=== PATIENT | female | born 1960 | race Caucasian/White ===

== ENCOUNTER 2016-05-15 16:29 | Emergency (ER) | payer OTHER ==
[~2016-05-15] VITALS: Ht 160 cm; Wt 51.8 kg
[~2016-05-15 16:29] MED LIST: 5-HY100C2 PO; CHOL200016 PO; DIAZ5TAB PO; MV-M1TAB28 PO; OXYC5CAP4 PO; TRAZ-118 PO; VITA-219 PO
[2016-05-15 16:32] VITALS: BP 117/56; PULSE 89; RESP 22; O2SAT 98
--- NOTE | 2016-05-15 18:02 | ED.REPORT ---
HPI-General Illness Date of Service May 15, 2016 ED Provider: Dr. Marino Foster 56 year old female with a history of multiple cervical surgeries, emphysema/ COPD and a current smoker who presents to the ED with severe back pain between the shoulder blades. Pt reports a recent fall in the snow, but states that the pain was present prior to the fall. Pain is exacerbated with deep breath, movements and positions. Pt has chronic back pain from a previous neck injury, but states this pain is worse. She also reports moderate pain to the L foot and L 4th finger from the fall. She also reports mild chronic SOB. Nursing Notes Stated Complaint: BACK PAIN/BETWEEN SHOULDER PAIN Chief Complaint: Back Pain or Injury Nursing Notes Reviewed: Yes Allergies: Coded Allergies: acetaminophen (Verified Allergy, Severe, 02/12/16) codeine (Verified Allergy, Severe, Anaphylaxis, 02/02/16) hydrocodone (Verified Allergy, Severe, TRUE ALLERGY, 02/02/16) Nitrofurantoin Macrocrystal (Verified Allergy, Unknown, 02/02/16) TAPE (Verified Allergy, Unknown, oliva skin, 02/02/16) nitrofurantoin (Verified Allergy, Unknown, 02/02/16) sertraline (Verified Allergy, Unknown, "made me crazy", 05/15/16) Scheduled Cholecalciferol (Vitamin D3) (Vitamin D) 2,000 Unit Tablet 2,000 UNIT PO DAILY Diazepam (Valium) 5 Mg Tablet 5 MG PO TID Trazodone (Trazodone) 100 Mg Tablet 100 MG PO HS Scheduled PRN oxyCODONE (oxyCODONE) 5 Mg Capsule 5 MG PO Q4H PRN PRN For Pain Miscellaneous Medications 5-Hydroxytryptophan (5-Htp) 100 Mg Capsule 100 MG PO Mv-Mn/Vitc/Asbna/Glu/Francia/Hc124 (Airborne Gummies) 1 Each Tab.chew 1 EACH PO Vitamin B Complex (B Complex) 1 Each Tablet 1 EACH PO General Time Seen by MD: 18:02 Chief Complaint Back pain Hx Obtained From: Patient Arrived By: Walk-in Sudden in Onset?: No Symptom Duration: Since onset Location: : Back Quality: Painful Severity: Current: Severe Associated with: Reports: Shortness of breath Pertinent Negative: Relieved by nothing Similar Sx Previous: Yes Past Medical History Past Medical History L&I neck injury asthma COPD emphysema migraine UTIs Back injury Anxiety Depression Past Surgical History colonoscopy 01/22 neck surgery x3 benign periumbilical tumor benign L breast lump TA Cervical CA at age 19 Reports: Appendectomy, Cholecystectomy, Hysterectomy Family History colon cancer Smoking History Current Every Day Smoker Social History Alcohol Use: "Social" Drug Use: Denies drug use, THC Occupation lives with roommate 02/02/2016 Ambulatory Status Independent Review of Systems Full Review of Systems Constitutional: Denies: Fever Respiratory: Reports: Shortness of breath, Denies: Non-productive cough Cardiovascular: Denies: Chest pain GI: Denies: Vomiting Musculoskeletal: Reports: Back pain Neurologic: Denies: Change LOC, Focal weakness Complete sys rev & neg: except as marked. Physical Exam Vital Signs Vital Signs Date Time Temp Pulse Resp B/P Pulse Ox O2 Delivery O2 Flow Rate FiO2 05/15/16 23:32 62 14 101/65 92 Room Air 05/15/16 22:30 59 14 99 Room Air 05/15/16 21:00 65 14 92 Room Air 05/15/16 20:30 63 15 99 Room Air 05/15/16 16:32 37.0 89 22 117/56 98 Nasal Cannula 3 Initial VS: Reviewed General/Constitutional: Well-developed, Well-nourished Head / Eyes: Atraumatic, Normocephalic, PERRL ENT: Mucous membranes moist, Conjunctiva normal, No scleral icterus Respiratory: Breath sounds normal, Clear to auscultation, No respiratory distress Cardiovascular: Regular rate & rhythm, Heart sounds normal, Intact distal pulses Abdomen / GI: Soft, Non-tender Skin: Warm, Dry Neurologic: Alert, Oriented, Nonfocal Psychiatric: Mood/affect normal, Behavior normal, Normal thought content Neck: Atraumatic, No midline vertebral tend Back: No midline vertebral tend (Pain reported to mid T-spine with no midline tenderness) Post op changes to back Upper Extremities Upper Extremity / MS: Neurologic intact, Vascular intact Ecchymosis to L 4th digit. Ankle / Foot: Neurologic intact, Vascular intact TTP of Lateral aspect of foot, base of 5th metatarsal. Interpretation & Diagnostics Lab Results Interpretation Result Diagram: 05/15/16 1840 05/15/16 1840 Test 05/15/16 18:40 05/15/16 22:10 White Blood Count 8.1th/mm3 (3.8-10.1) Red Blood Count 4.05mil/mm3 (3.90-5.20) Hemoglobin 12.6g/dL (12.0-15.6) Hematocrit 38.3% (35.0-46.0) Mean Corpuscular Volume 94.6fL (81-100) Mean Corpuscular Hemoglobin 31.1pg (27.0-35.0) Mean Corpuscular Hemoglobin Concent 32.9% (32.0-37.0) Red Cell Distribution Width 12.9% (12.3-15.4) Platelet Count 251bil/L (150-400) Neutrophils (%) (Auto) 46.0% (40-74) Lymphocytes (%) (Auto) 44.0% (14-46) Monocytes (%) (Auto) 7.6% (4-12) Eosinophils (%) (Auto) 1.9% (0-5) Basophils (%) (Auto) 0.4% (0-3) D-Dimer < 0.5mg/L (<0.50) Sodium Level 138mEq/L (134-144) Potassium Level 3.7mEq/L (3.5-5.2) Chloride Level 101mEq/L (97-108) Carbon Dioxide Level 29mmol/L (18-29) Blood Urea Nitrogen 12mg/dL (6-24) Creatinine 0.70mg/dL (0.57-1.00) Estimat Glomerular Filtration Rate 123mL/min (>59) Glucose Level 102mg/dL (60-99) Calcium Level 9.6mg/dL (8.5-10.1) Total Bilirubin 0.2mg/dL (0.0-1.2) Aspartate Amino Transf (AST/SGOT) 17U/L (0-50) Alanine Aminotransferase (ALT/SGPT) 10U/L (0-32) Alkaline Phosphatase 62U/L (25-150) Total Protein 6.3g/dL (6.4-8.4) Albumin 4.1g/dL (3.4-5.0) Hold Myers Top Tube Received (Received) Troponin T 0.010ug/L (0.0-0.011) General Lab Results Interp 1: Labs reviewed Pulse Oximetry Interpretation Pulse Oximetry: Pulse Ox normal (98), On nasal cannula (3L) ECG Interpretation ECG Interpretation: Low voltage Time: 18:29 Interpreted by: ED physician Normal ECG Interpretation: Normal rate (65), Normal sinus rhythm, No acute ischemic changes Rhythm / Conduction: Poor R wave progression X-Ray Chest Interpretation Chest Xray Interpretation: No acute cardiopulmonary disease. View: AP & lat Interpretation / Wet Read by: Interpret - Radiologist X-Ray Interpretation Xray Interpretation: No visualized acute fracture or dislocation. Study Performed: T-spine Interpretation / Wet Read by: Interpret - Radiologist CT Chest Interpretation No evidence of PE or dissection. Emphysema. Intrahepatic and extrahepatic biliary dilation. This may be chronic, rorrelate with lab values. Study type: CT pulm angiogram Interpretation / Wet Read by: Interpret - Radiologist Re-Eval/Medical Decision Med Decision/Clinical Course Severe nontraumatic intrascapular back pain. No history of trauma. Myocardial infarction ruled out with EKG and serial troponins. Dissection and pulmonary emboli ruled out. Acute fracture ruled out. Pathologic fracture ruled out. Infection ruled out. Pain adequately treated. Close outpatient follow-up recommended. Routine sedative/opiate warnings given. Time of Eval: 21:57 Re-Evaluation/Progress Note: Pt updated of imaging. Awaiting repeat trop. feeling better. Time of Eval: 10:42 Re-Evaluation/Progress Note: Updated of plan for CT scan. Time of Eval: 22:58 Re-Evaluation/Progress Note: Updated pt of labs, ECG and imaging results. Pt improved. Discussed plan for discharge and follow up. All questions addressed. Counseled Regarding: Diagnosis, Lab results, Need for follow-up, When/why to return to ED Discharge & Departure Primary Impression: Thoracic back pain Chronicity: chronic Back pain laterality: midline Qualified Code: M54.6 - Pain in thoracic spine Disposition: Home Discharge Condition All VS Reviewed: Yes Condition: Improved Additional Instructions: Your x-ray, chest CT and labs are reassuring. There is no sign of pulmonary embolism, aortic dissection or fracture. Your symptoms are most likely musculoskeletal. Make sure that you are resting your back. For pain you can use your usual prescription pain medications as prescribed starting tomorrow. Don' t drink, drive or use your pain medications tonight. Call your PCP on Tuesday to schedule a follow up with your doctor next week. Return to the ER for any new or concerning symptoms. Referrals: Jamir Anna MD (PCP) Scribe Attestation Portions of this note were transcribed by Gaby Hill. I, (Dr. Foster) personally performed the history, physical exam and medical decision-making; I reviewed and confirmed the accuracy of the information in the transcribed note. Signed by: Gaby Hill. Shun, 05/15/16, 1068 copies to: Jamir Anna MD, Todd P DO May 15, 2016 18:02 Gaby Hill May 15, 2016 18:49
[2016-05-15] MEDS ORDERED: Ondansetron 2 mg/mL 2 mL Inj IVPUSH PRN (18:20)
[2016-05-15] MEDS: HYDROmorphone 0.5 mg/0.5 mL iSecure Syringe IVPUSH PRN ×2 (18:53→20:45)
[2016-05-15 19:14] LABS: BASOPHILS % (AUTO) 0.4 % (0-3); EOSINOPHILS % (AUTO) 1.9 % (0-5); MONOCYTES % (AUTO) 7.6 % (4-12); Mean Corpuscular Hemoglobin 31.1 pg (27.0-35.0); Mean Corpuscular Volume 94.6 fL (81-100); Platelet Count 251 bil/L (150-400)
[2016-05-15 19:42] LABS: TROPONIN T < 0.010 ug/L (0.0-0.011)
[2016-05-15 20:30] VITALS: PULSE 63; RESP 15; O2SAT 99
[2016-05-15 21:00] VITALS: PULSE 65; RESP 14; O2SAT 92
[2016-05-15 22:30] VITALS: PULSE 59; RESP 14; O2SAT 99
[2016-05-15] MEDS ORDERED: HYDROmorphone 1 mg/mL Inj IVPUSH ONE (23:00)
[2016-05-15] MEDS ORDERED: Dexamethasone Inj 10 MG in 0.9% Sodium Chloride-Pha MIX 50 ML IV ONE (23:30)
[2016-05-15 23:32] VITALS: BP 101/65; PULSE 62; RESP 14; O2SAT 92
--- NOTE | 2016-05-16 15:12 | DRSVH ---
PROCEDURE: X-RAY LEFT FOOT COMPLETE, MINIMUM THREE VIEWS ([id number]) INDICATIONS: fall, pain TECHNIQUE: 3 views of the foot were acquired. COMPARISON: None. FINDINGS: Bones: No fractures or dislocations. No suspicious bony lesions. Soft tissues: No tibiotalar joint effusion. Achilles tendon appears normal. Mild soft tissue edema is present in the plantar surface. IMPRESSION: Mild plantar surface soft tissue edema. No visualized acute fracture or dislocation. How ever, if clinical concern and/or pain persist, short interval imaging followup in 7-10 days is recomm ended, as occult injury cannot be definitively excluded. Dictated by: Samantha Marie M.D. on 05/15/2016 at 18:37 Approved by: Samantha Marie M.D. on 05/15/2016 at 18:39
--- NOTE | 2016-05-16 15:12 | DRSVH ---
PROCEDURE: X-RAY LEFT HAND, MINIMUM THREE VIEWS ([id number]) INDICATIONS: fall, pain TECHNIQUE: 3 views of the hand(s) acquired. COMPARISON: None. FINDINGS: Bones: No fractures or dislocations. Carpal bones are normally aligned. No suspicious bony lesions . Soft tissues: No suspicious soft tissue calcifications. IMPRESSION: No visualized acute fracture or dislocation. However, if clinical concern and/or pain pe rsist, short interval imaging followup in 7-10 days is recommended, as occult injury cannot be defini tively excluded. Dictated by: Samantha Marie M.D. on 05/15/2016 at 18:37 Approved by: Samantha Marie M.D. on 05/15/2016 at 18:37
--- NOTE | 2016-05-16 15:13 | DRSVH ---
PROCEDURE: X-RAY CHEST, TWO VIEWS ([id number]) INDICATIONS: intrascapular back pain TECHNIQUE: 2 views of the chest were acquired. COMPARISON: [facility], CR, XR CHEST 2VW, 02/27/2016, 8:16. FINDINGS: Surgical changes and devices: Cervical fixation rods are noted. Lungs and pleura: No pleural effusions or pneumothorax. Lungs are clear. Lungs are hyperexpanded s uggestive of COPD. Mediastinum: Mediastinal contours are normal. Heart size is normal. Bones and chest wall: No suspicious bony abnormalities. Soft tissues appear unremarkable. IMPRESSION: No acute pulmonary process. Dictated by: Samantha Marie M.D. on 05/15/2016 at 20:32 Approved by: Samantha Marie M.D. on 05/15/2016 at 20:32
--- NOTE | 2016-05-16 15:13 | DRSVH ---
PROCEDURE: X-RAY THORACIC SPINE, 2 VIEWS INDICATIONS: INTRASCAPULAR BACK PAIN TECHNIQUE: 2 views of the thoracic spine were acquired. COMPARISON: None. FINDINGS: Bones: No fractures or dislocations. No suspicious bony lesions. 12 pairs of ribs are noted, and a ppear intact where visualized. Soft tissues: No paravertebral stripe thickening. IMPRESSION: No visualized acute fracture or dislocation. However, if clinical concern and/or pain pe rsist, short interval imaging followup in 7-10 days is recommended, as occult injury cannot be defini tively excluded. Dictated by: Samantha Marie M.D. on 05/15/2016 at 20:32 Approved by: Samantha Marie M.D. on 05/15/2016 at 20:33
--- NOTE | 2016-05-16 15:13 | DRSVH ---
PROCEDURE: CT ANGIO CHEST PULMONARY EMBOLISM ([id number]) INDICATIONS: intrascapular pain, dyspnea TECHNIQUE: After the administration of intravenous contrast, 2 mm thick sections acquired from the pulmonary api [place] to the posterior costophrenic angles. 3-dimensional maximum intensity projection (MIP) coronal a nd sagittal reformats were then acquired through the thorax. For radiation dose reduction, the follo wing was used: automated exposure control, adjustment of mA and/or kV according to patient size. COMPARISON: [facility], CT, CHEST/ABD/PELVIS W/CON (PNL), 04/24/2014, 22:10. FINDINGS: Image quality: Excellent. Pulmonary arteries: Pulmonary arteries are normal in size, and demonstrate no intraluminal filling d efects to suggest central pulmonary embolism. Lungs and pleura: Small lung nodules are present bilaterally. There is interval minimal nodule in th e right upper lobe medially (series 5 image 19). There are a couple of subcentimeter nodules in the right lower lobe (series 5 image 38 and 40) measuring 3-4 mm. Two small irregular nodules in the rig ht upper lobe (series 5 image 19). There is a 2 mm nodule in the lingula (series 5 image 35). Modera te emphysema. No pleural effusions or pneumothorax. Central and peripheral airways are patent. Mediastinum: Heart size is normal. Small pericardial effusion. No mediastinal or hilar adenopathy. Thoracic aorta is normal in caliber and enhancement. Esophagus is normal in caliber, without hiatal hernia. Bones and chest wall: No suspicious bony lesions. Ribs and thoracic spine appear intact throughout. Thyroid gland is normal. No axillary or supraclavicular adenopathy. Abdomen: There is intrahepatic and extra hepatic biliary dilation. Visualized upper abdominal solid organs appear normal in the early arterial phase of enhancement. IMPRESSION: 1. No evidence for pulmonary embolism. 2. Moderate severe emphysema. 3. Multiple small lung nodules bilaterally as described. Please see below for followup instructions. 4. Small pericardial effusion. 5. Intrahepatic and intrahepatic biliary dilation. This is partially retracted. Please correlate with serum bilirubin for biliary obstruction. No significant discrepancy with the shift nurse manager radiology preliminary report. Fleischner Society criteria for SOLID lung nodule followup. Nodule size (mm)Low-risk patientHigh-risk [id number] follow-up neededFollow-up at 12 mo; if no brown e, no further follow-up>3-1Adrdth-bc CT at 12 mo; if no change, no further follow-up needed.Initial f ollow-up CT at 6-12 mo, then 18-24 mo if no change. >6-8Initial follow-up CT at 6-12 mo, then 18-24 mo if no change. Initial follow-up CT at 3-6 mo, then 9-12 mo and 24 mo if no change. >8Follow-up CT at 3, 9, 24 mo. Or PET and/or biopsy.Same as for low-risk pts. Fleischner Society criteria for SUB-SOLID lung nodule followup. Solitary pure ground-glass nodules5 mm or lessNo followup needed. >5 mm3 mo follow-up CT to confirm persistence. Then annual CT for 3 years. Part-solid nodules3 mo follow-up CT to confirm persistence . If persistent with solid component <5 mm, annual CT for at least 3 years. If solid component is 5 mm or more, biopsy or surgical resection. Consider PET-CT for lesions > 10 mm. Multiple sub-solid nodulesPure ground glass nodules [address] at 2 and 4 years. Pure ground glass nodules >5 mm without dominant lesion. [address] to confirm persistence, then annual followup CT for at least 3 years. Dominant nodule(s) with part-solid or solid component. [address] to confirm persistence. If persistent, consider biopsy or surgical resection, ramos if lesions have >5 m m solid component. Dictated by: Anibal Romero M.D. on 05/16/2016 at 8:31 Approved by: Anibal Romero M.D. on 05/16/2016 at 8:43
== END 2016-05-16 00:03 | disposition home or self-care (01) ==
LOC: SED 16:47
DX: M54.6 Pain in thoracic spine (principal); M79.672 Pain in left foot; M79.645 Pain in left finger(s); W00.9XXA Unspecified fall due to ice and snow, initial encounter; Y93.9 Activity, unspecified; Y92.9 Unspecified place or not applicable; Y99.8 Other external cause status; R06.02 Shortness of breath; J45.909 Unspecified asthma, uncomplicated; J44.9 Chronic obstructive pulmonary disease, unspecified; F17.200 Nicotine dependence, unspecified, uncomplicated; Z88.8 Allergy status to other drugs, medicaments and biological substances; Z85.41 Personal history of malignant neoplasm of cervix uteri; Z87.440 Personal history of urinary (tract) infections; Z88.5 Allergy status to narcotic agent; Z87.828 Personal history of other (healed) physical injury and trauma
CPT/HCPCS: 36415; 71020; 71275; 72070; 73130; 73630; 80053; 84484; 85025; 85379; 93005; 96374; 96375; 96376; 99285; J1100; J1170; J2405; Q9967

== ENCOUNTER 2016-07-03 17:26 | Emergency (ER) | payer OTHER ==
--- NOTE | 2016-07-03 17:36 | ED.REPORT ---
HPI-Neurologic Deficit Date of Service Jul 03, 2016 ED Provider: Toni Marquez MD A 56 year old female with a history of CVA, migraines, multiple cervical surgeries, emphysema/COPD and a current smoker presents to the ED via EMS with stroke like symptoms that began 1 hour prior to arrival. Last known well was 1630. EMS report that the patient began to feel a numb sensation to the left side of her face that radiated down over the coarse of 20 minutes. Associated symptoms also include left arm drift, decreased deployment technician strength, left-sided weakness and thick/slurred speech. Her chronic migraines are often associated with photophobia and she denies any similar symptoms currently. Patient took one aspirin after initial 20 minutes of symptom onset. Patient reports Botox injections to the face and neck two weeks ago and denies any changes in facial symmetry. Patient had a normal brain MRI 12/09. She denies hematemesis, melena, fever, or chills. Upon arrival to the ED her Her glucose is 101 and BP is 128/ 83. Nursing Notes Stated Complaint: STROKE SYMPTOMS Chief Complaint: Stroke Symptoms Nursing Notes Reviewed: Yes Allergies: Coded Allergies: acetaminophen (Verified Allergy, Severe, 02/12/16) codeine (Verified Allergy, Severe, Anaphylaxis, 02/02/16) hydrocodone (Verified Allergy, Severe, TRUE ALLERGY, 02/02/16) Nitrofurantoin Macrocrystal (Verified Allergy, Unknown, 02/02/16) TAPE (Verified Allergy, Unknown, oliva skin, 02/02/16) nitrofurantoin (Verified Allergy, Unknown, 02/02/16) sertraline (Verified Allergy, Unknown, "made me crazy", 05/15/16) Scheduled Cholecalciferol (Vitamin D3) (Vitamin D) 2,000 Unit Tablet 2,000 UNIT PO DAILY Diazepam (Valium) 5 Mg Tablet 5 MG PO TID Trazodone (Trazodone) 100 Mg Tablet 100 MG PO HS Scheduled PRN oxyCODONE (oxyCODONE) 5 Mg Capsule 5 MG PO Q4H PRN PRN For Pain Miscellaneous Medications 5-Hydroxytryptophan (5-Htp) 100 Mg Capsule 100 MG PO Mv-Mn/Vitc/Asbna/Glu/Francia/Hc124 (Airborne Gummies) 1 Each Tab.chew 1 EACH PO Vitamin B Complex (B Complex) 1 Each Tablet 1 EACH PO General Time Seen by Provider: 17:43 Chief Complaint Other (Facial numbness) Hx Obtained From: Patient, EMS Arrived By: Ambulance Sudden in Onset?: Yes Onset Occurred: 1 - 4 hours ago (1 hr prior ) Symptom Duration: Since onset Progression Since Onset: Unchanged Associated with: Reports: Weakness Additional Notes: Numbness Pertinent Negative: Pt denies other symptoms Related History: Reports: CVA/TIA Recent Healthcare: No recent hospitalization, Recent doctor visit Risk Factors TPA Administration/Criteria Stroke Thrombolytic Therapy : TPA Considered: Yes Neurologist Contacted: Yes Disc Risk/Benefit/Alternatives: Yes Consent Obtained: Patient Intensive Monitoring Performed: Yes TPA Administered Intravenously: Yes Inclusion Criteria: Onset < 3hr before Tx, 18 years or older NIH Stroke Scale Level of Consciousness: Alert and responsive (0) Ask Month & Age: Both questions right (0) Open/Close Eyes/Hand Tip Tester: Performs both tasks (0) Horizontal EO Movements: None (0) Visual Horton: No visual loss (0) Facial Palsy: Normal symmetry (0) Right Arm Motor Drift (10s): No drift 10 sec (0) Left Arm Motor Drift (10s): Drift, not touch bed (1) Right Leg Motor Drift (5s): No drift 5 sec (0) Left Leg Motor Drift (5s): No drift 5 sec (0) Limb Ataxia FNF/Heel-Salazar: Ataxia in 1 limb (1) Sensation (Arms/Legs/Face): P-prick dull but felt (1) Language Aphasia: Loss fluency ID matls (1) Dysarthria: Slurring intelligible (1) Extinction/Inattention: No exctinct/inattent (0) NIHSS Score: 4 Time NIHSS Performed: 17:57 Past Medical History Past Medical History Notes: PCP: Dr. Jamir Anna Past Medical History L&I neck injury Previous CVA Asthma COPD/emphysema Migraine UTIs Back injury Anxiety Depression Past Surgical History Colonoscopy 01/22 Neck surgery x3 Benign periumbilical tumor Benign L breast lump TA Cervical CA at age 19 Reports: Appendectomy, Cholecystectomy, Hysterectomy Family History colon cancer Smoking History Current Every Day Smoker Social History Alcohol Use: "Social" Drug Use: Denies drug use Other Social History: Good social support, , Local resident Occupation lives with roommate 02/02/2016 Ambulatory Status Independent Review of Systems Constitutional: Denies: Chills, Fever GI: Denies: Hematemesis, Melena, Nausea, Vomiting Neurologic: Reports: Numbness, Slurred speech, Weakness, Denies: Headache Complete sys rev & neg: except as marked. Physical Exam Initial Vital Signs Vital Signs (First) Date Time Temp Pulse Resp B/P Pulse Ox O2 Delivery O2 Flow Rate FiO2 07/03/16 17:43 36.8 68 20 107/77 97 Room Air 07/03/16 18:15 2 Glucose 101 BP 128/83 Initial VS: Reviewed Neck: Supple, Non-tender, Full range of motion Extremities: Vascular intact, Neuro intact, No swelling, No tenderness Skin: Warm, Dry, No cyanosis Psychiatric: Mood/affect normal, Behavior normal, Normal thought content General/Constitutional: Awake, Alert, No acute distress Head / Eyes: Atraumatic, Normocephalic, PERRL Respiratory / Chest: Atraumatic, Breath sounds NL, Breath sounds = bilat, No respiratory distress Cardiovascular: Heart rate NL, Regular rhythm, Heart sounds NL, No gallop, No murmurs, No rubs Neurologic: Oriented X3, CN II - XII intact Cerebellar Dysfunction: Negative: Finger-nose abnl NEURO: See NIH Stroke Scale in Risk section Interpretation & Diagnostics Lab Results Interpretation Result Diagram: 07/03/16 1740 07/03/16 1740 Test 07/03/16 17:40 White Blood Count 8.3th/mm3 (3.8-10.1) Red Blood Count 4.31mil/mm3 (3.90-5.20) Hemoglobin 13.4g/dL (12.0-15.6) Hematocrit 40.3% (35.0-46.0) Mean Corpuscular Volume 93.5fL (81-100) Mean Corpuscular Hemoglobin 31.1pg (27.0-35.0) Mean Corpuscular Hemoglobin Concent 33.3% (32.0-37.0) Red Cell Distribution Width 12.8% (12.3-15.4) Platelet Count 244bil/L (150-400) Neutrophils (%) (Auto) 44.0% (40-74) Lymphocytes (%) (Auto) 45.4% (14-46) Monocytes (%) (Auto) 8.3% (4-12) Eosinophils (%) (Auto) 1.7% (0-5) Basophils (%) (Auto) 0.5% (0-3) Prothrombin Time 10.6sec (8.1-12.5) Prothromb Time International Ratio 0.99ratio Activated Partial Thromboplast Time 26.4sec (22.8-33.0) Sodium Level 139mEq/L (134-144) Potassium Level 3.5mEq/L (3.5-5.2) Chloride Level 98mEq/L (97-108) Carbon Dioxide Level 27mmol/L (18-29) Blood Urea Nitrogen 9mg/dL (6-24) Creatinine 0.74mg/dL (0.57-1.00) Estimat Glomerular Filtration Rate 115mL/min (>59) Glucose Level 95mg/dL (60-99) Calcium Level 10.8mg/dL (8.5-10.1) Total Bilirubin 0.4mg/dL (0.0-1.2) Aspartate Amino Transf (AST/SGOT) 21U/L (0-50) Alanine Aminotransferase (ALT/SGPT) 13U/L (0-32) Alkaline Phosphatase 61U/L (25-150) Troponin T < 0.010ug/L (0.0-0.011) Total Protein 7.4g/dL (6.4-8.4) Albumin 4.6g/dL (3.4-5.0) ECG Interpretation ECG Interpretation: Sinus Rhythm Rate 62 Time: 18:15 Interpreted by: ED physician Normal ECG Interpretation: No change from prior ECGs (05/15/2016) CT Head Interpretation IMPRESSION: No abnormalities intracranially. No evidence for edema, loss of vargas-white matter interface, mass effect or bleeding is seen. This study fulfills neurological imaging criteria for inclusion or exclusion of acute stroke therapies based on available published neurological imaging guidelines. Dictated by: Luther Field M.D. on 07/03/2016 at 17:48 Study: Head CT no contrast Interpretation / Wet Read by: Interpret - Radiologist Procedures Thrombolytic Therapy - Stroke Discussed risks/benefits including inability to predict what individuals will benefit, risk of bleeding including intra-cranial bleed and possible . Also discussed diagnostic uncertainty in light of the migraine history. She would like to proceed with TPA Time: 16:35 Procedure Performed by: ED physician Consent / Timeout / Setup: Informed consent provided, Consent from patient, Time-out performed, Oxygen administered, Pulse oximeter applied, monitor tech applied Neurologist Contacted: Yes rtPA Administration: rtPA admin per protocol, Inclusion crit reviewed, Exclusion crit reviewed Post-Procedure: No complications, Tolerated procedure well, Patient stable, No bleeding Re-Eval/Medical Decision Med Decision/Clinical Course Acute CVA who is TPA candidate. Stroke scale of 4 by me. Neuro consult via telestroke. TPA given, no complications observed. We have no neurology coverage so we are transferring. CT angio done, results pending. Re-Evaluation/Progress #1: Time of Eval: 18:19 Patient Status: Condition improved Re-Evaluation/Progress Note: Patient discusses symptoms with [place] neurologist. She denies any previous similar symptoms. Patient has full strength in the right upper extremitites and significant decreased strength to the left. Informed conset is given, patient understands all of the risks and agrees to TPA administration Re-Evaluation/Progress #2: Time of Eval: 18:35 Re-Evaluation/Progress Note: TPA administered. Patient tolerates. Re-Evaluation/Progress #3: Time of Eval: 19:59 Patient Status: Condition improved Re-Evaluation/Progress Note: Dr. Corley agrees to accept admit to [facility]. Patient is rechecked. Tingling in face still present but symptoms have resolved. She agrees with the plan to transfer to 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 Corley - [place] Neurologist Counseled Regarding: Diagnosis, Lab results, Need for transfer Discharge & Departure Impression: Primary Impression: Cerebrovascular accident CVA mechanism: unspecified Qualified Code: I63.9 - Cerebral infarction, unspecified Disposition: Transfer, Acute Care Facility ([facility] ) Receiving Hospital: [facility], Dr Mondragon Transfer Accepted: Yes Transfer Reason: Tertiary care Spoke with: Attending physician Patient Status: Stable Patient Informed: Yes Discharge Condition All VS Reviewed: Yes Condition: Stable Referrals: Jamir Anna MD (PCP) Crit Care Except Billable Proc Time Spent: 75-104 minutes Services Performed: Patient management by me, Time spent at bedside, Reviewing test results, Reviewing imaging, Discussing patient care, Documentation in record, Time with fam/surrogate Scribe Attestation Portions of this note were transcribed by Omar Perez. I, Dr. Marquez personally performed the history, physical exam and medical decision-making; I reviewed and confirmed the accuracy of the information in the transcribed note. Signed by: Shun Gupta, 07/02/161999. copies to: Jamir Anna MD, Donald L MD Jul 03, 2016 17:36 OMAR EPREZ Jul 03, 2016 17:42
[2016-07-03 17:43] VITALS: BP 107/77; PULSE 68; RESP 20; O2SAT 97
[2016-07-03 17:54] LABS: BASOPHILS % (AUTO) 0.5 % (0-3); EOSINOPHILS % (AUTO) 1.7 % (0-5); MONOCYTES % (AUTO) 8.3 % (4-12); Mean Corpuscular Hemoglobin 31.1 pg (27.0-35.0); Mean Corpuscular Volume 93.5 fL (81-100); Platelet Count 244 bil/L (150-400)
--- NOTE | 2016-07-03 17:54 | DRSVH ---
PROCEDURE: CT BRAIN (TPA) ([id number]) INDICATIONS: Stroke TECHNIQUE: Noncontrast 4.5 mm thick angled axial sections acquired from the foramen magnum to the vertex, with c oronal reformats. COMPARISON: [facility], CT, CT BRAIN WO CON, 02/12/2016, 13:19. FINDINGS: Image quality: Excellent. CSF spaces: Basal cisterns are patent. No extra-axial fluid collections. Ventricles are normal in size and shape. Brain: No midline shift. No intracranial masses or hemorrhage. Davis-white matter interface is norm al. Skull and face: Calvarium and visualized facial bones are intact, without suspicious lesions. Sinuses: Visualized sinuses and mastoids are clear. IMPRESSION: No abnormalities intracranially. No evidence for edema, loss of davis-white matter interfa ce, mass effect or bleeding is seen. This study fulfills neurological imaging criteria for inclusion or exclusion of acute stroke therapie s based on available published neurological imaging guidelines. Dictated by: Luther Field M.D. on 07/03/2016 at 17:48 Approved by: Luther Field M.D. on 07/03/2016 at 17:53
[2016-07-03 18:15] VITALS: BP 113/70; PULSE 66; RESP 14; O2SAT 97
[2016-07-03 18:20] LABS: INR 0.99 ratio
[2016-07-03 18:39] LABS: TROPONIN T < 0.010 ug/L (0.0-0.011)
[2016-07-03] MEDS ORDERED: Alteplase (No Charge) 1 mg/mL Syringe IV ONE (18:50)
[2016-07-03] MEDS ORDERED: Alteplase Dose Per Pharmacist XX ONE (18:50)
[2016-07-03] MEDS ORDERED: ALTEPLASE IV ONE (18:50)
--- NOTE | 2016-07-03 20:08 | DRSVH ---
PROCEDURE: CT ANGIO BRAIN NECK TPA INDICATIONS: L sided stroke symptoms TECHNIQUE: Pre-contrast 4.5 mm thick sections acquired from the foramen magnum to the vertex. After the adminis tration of intravenous contrast, 1 mm thick sections acquired from the aortic arch through the [place] of [place]. Post-contrast 4.5 mm thick sections then re-acquired from the foramen magnum to the vert ex. 3-dimensional vuaharg-nngpktmuv-tynufhtglk (MIP) and/or volume rendering reformats were acquired of the central intracranial vasculature and neck separately. For radiation dose reduction, the foll owing was used: automated exposure control, adjustment of mA and/or kV according to patient size. COMPARISON: None. FINDINGS: Image quality: Excellent. BRAIN: CSF spaces: Ventricles are normal in size and shape. Basal cisterns are patent. No extra-axial flu id collections. Brain: No midline shift. No intracranial bleeds or masses. Davis-white matter interface appears int act. Skull and face: Calvarium and facial bones appear intact, without suspicious lesions. Orbits appear normal. Sinuses: Sinuses and mastoids are clear. Frontals are minimally developed on the left side HEAD CT ANGIOGRAPHY: Anterior circulation: Intracranial internal carotid arteries are normal in size and flow. There is a small amount of atherosclerotic plaque in the siphon on the right. The flow within the paired anteri or cerebral arteries is normal and symmetric. However the A1 segment on the right is attenuated madi red to the left which supplies the majority of the flow The flow within the middle cerebral arteries is normal and symmetric. The anterior communicating artery is seen. No aneurysms are seen. Posterior circulation: Visualized portions of the vertebral arteries demonstrate normal caliber, and join to form a normal appearing basilar artery. The right vertebral is more robust than the left. Joseph th are widely patent throughout their courses. Flow within the posterior cerebral arteries is normal and symmetric. No aneurysms are seen. NECK CT ANGIOGRAPHY: Carotid system: The great vessels demonstrate a conventional anatomy as they arise from the aortic a rch. There is a normal variation of the left vertebral arising from the arch just before the left yoon bclavian. The origins of the common carotid arteries appear patent. The common carotid arteries demo nstrate normal caliber and courses. The left common carotid artery origin is slightly irregular from atherosclerotic plaquing but no significant stenosis is seen. The bifurcation regions are both widely patent. The internal carotid arteries demonstrate normal calibers and courses. Posterior circulation: The origins of the vertebral arteries both appear widely patent. The more yoon perior extracranial portions of both vertebral arteries also demonstrate normal courses and calibers. They join to form a normal appearing basilar artery. Soft tissues: Visualized neck soft tissues demonstrate no suspicious abnormalities. Bones: No suspicious bony lesions. Visualized cervical spine appears normally aligned. IMPRESSION: No evidence for infarct. No vascular abnormality intracranially is seen no indicate ischemic change or hemorrhagic change. Other than some irregularity of the origin of the left common carotid artery consistent with atherosc lerosis and some atherosclerotic plaquing in the region of the siphon of the right internal carotid a rtery no evidence for any narrowing of the vessels is seen. Relatively small right A1 segment. Left vertebral artery arises from the aortic arch itself. Small ri ght origin posterior communicating artery. Dictated by: Luther Field M.D. on 07/03/2016 at 19:53 Approved by: Luther Field M.D. on 07/03/2016 at 20:07
[2016-07-03 20:29] LABS: APPEARANCE,URINE CLEAR (CLEAR,HAZY); COLOR,URINE STRAW (YELLOW); OCCULT BLOOD,URINE TRACE (NEGATIVE); PH,URINE 5.5 (5.0-8.0); UROBILINOGEN,URINE NORMAL (NORMAL)
[2016-07-03 20:33] VITALS: BP 112/68; PULSE 70; RESP 19; O2SAT 98
== END 2016-07-03 20:25 | disposition short-term general hospital (02) ==
LOC: SED 17:26 → EDBD 17:26 → EDUNIT# 17:26 → SED 20:25
DX: I63.9 Cerebral infarction, unspecified (principal); J44.9 Chronic obstructive pulmonary disease, unspecified; J45.909 Unspecified asthma, uncomplicated; F17.210 Nicotine dependence, cigarettes, uncomplicated; Z88.5 Allergy status to narcotic agent; Z88.6 Allergy status to analgesic agent; Z88.8 Allergy status to other drugs, medicaments and biological substances
CPT/HCPCS: 37195; 70450; 70496; 70498; 80053; 81000; 84484; 85025; 85610; 85730; 87086; 93005; 99291; 99292; J2997; Q9967

== ENCOUNTER 2016-08-21 06:28 | Emergency (ER) | payer OTHER ==
[~2016-08-21] VITALS: Ht 161.3 cm; Wt 54.5 kg
[2016-08-21 06:33] VITALS: BP 116/77; PULSE 73; RESP 16; O2SAT 95
--- NOTE | 2016-08-21 06:58 | ED.REPORT ---
HPI-Extremity Problem Upper Date of Service August 21, 2016 ED Provider: Rick Taylor MD Pt is a 56 y.o. female with a hx of back injury, CVA, and COPD who presents to the ED c/o a right wrist injury and pain rated at an 8.5 onset last night. Pt states that she was at home walking down her steps when she slipped, falling backwards and catching herself with her right hand. She reports associated mild right hip pain but states she has been ambulatory She denies hitting her head and LOC. Pt states that she had a CVA and has been doing physical therapy but is still a "little unsteady" and that is why she slipped. Nursing Notes Stated Complaint: FELL/RIGHT HAND Chief Complaint: Extremity Trauma Nursing Notes Reviewed: Yes Allergies: Coded Allergies: acetaminophen (Verified Allergy, Severe, 02/12/16) codeine (Verified Allergy, Severe, Anaphylaxis, 02/02/16) hydrocodone (Verified Allergy, Severe, TRUE ALLERGY, 02/02/16) Nitrofurantoin Macrocrystal (Verified Allergy, Unknown, 02/02/16) TAPE (Verified Allergy, Unknown, oliva skin, 02/02/16) nitrofurantoin (Verified Allergy, Unknown, 02/02/16) sertraline (Verified Allergy, Unknown, "made me crazy", 05/15/16) Scheduled Cholecalciferol (Vitamin D3) (Vitamin D) 2,000 Unit Tablet 2,000 UNIT PO DAILY Diazepam (Valium) 5 Mg Tablet 5 MG PO TID Trazodone (Trazodone) 100 Mg Tablet 100 MG PO HS Scheduled PRN oxyCODONE (oxyCODONE) 5 Mg Capsule 5 MG PO Q4H PRN PRN For Pain Miscellaneous Medications 5-Hydroxytryptophan (5-Htp) 100 Mg Capsule 100 MG PO Mv-Mn/Vitc/Asbna/Glu/Francia/Hc124 (Airborne Gummies) 1 Each Tab.chew 1 EACH PO Vitamin B Complex (B Complex) 1 Each Tablet 1 EACH PO General Time Seen by MD: 06:50 Chief Complaint Wrist injury right Hx Obtained From: Patient Arrived By: Walk-in Onset Occurred: Yesterday Symptom Duration: Since onset Caused by: Accidental, Slipped Location: : Wrist right Quality: Painful Severity: Current: Pain level 9 out of 10 Similar Sx Previous: No Past Medical History Past Medical History Notes: PCP: Dr. Jamir Anna Past Medical History L&I neck injury Previous CVA Asthma COPD/emphysema Migraine UTIs Back injury Anxiety Depression Past Surgical History Colonoscopy 01/22 Neck surgery x3 Benign periumbilical tumor Benign L breast lump TA Cervical CA at age 19 Reports: Appendectomy, Cholecystectomy, Hysterectomy Family History colon cancer Smoking History Current Every Day Smoker Social History Alcohol Use: "Social" Drug Use: Denies drug use Other Social History: Good social support, , Local resident Occupation lives with roommate 02/02/2016 Ambulatory Status Independent Review of Systems Musculoskeletal: Reports: Extremity pain (Right wrist), Joint pain (Right hip) Neurologic: Denies: Change LOC, Headache Complete sys rev & neg: except as marked. Physical Exam Initial Vital Signs Vital Signs (First) Date Time Temp Pulse Resp B/P Pulse Ox O2 Delivery O2 Flow Rate FiO2 08/21/16 06:33 36.2 73 16 116/77 95 Room Air Initial VS: Reviewed Abdomen / GI: No distention Lower Extremities: Vascular intact, Neuro intact Skin: Warm, Dry, No cyanosis Psychiatric: Mood/affect normal, Behavior normal, Normal thought content General/Constitutional: Awake, Alert, Well appearing, Well developed, Well hydrated, Well nourished, Not toxic appearing Neck: Atraumatic, Supple Well healed cervical neck incision Respiratory / Chest: Atraumatic, Breath sounds NL, Breath sounds = bilat, No respiratory distress Cardiovascular: Heart rate NL, Heart sounds NL, Cap refill not delayed, Peripheral circulation NL Upper Extremity / MS: Atraumatic, Inspection NL, Full range of motion Wrist / Hand: Atraumatic, Inspection NL, No swelling, Neurologic intact, Vascular intact Right Wrist: Positive: Tenderness present... (Right distal radius), Negative: Deformity present..., Ecchymosis present..., Erythema present, Neuro deficit present, Swelling present..., Tender snuffbox..., Warmth present No scaphoid tenderness or step-off to right wrist. Neurologic: Oriented X3, Speech NL No laterizing neurologic findings Head / Eyes: Atraumatic, Normocephalic, PERRL, EOMI Interpretation & Diagnostics X-Ray Interpretation Xray Interpretation: IMPRESSION: No acute fracture X-Ray Ordered: Wrist right Interpretation / Wet Read by: Wet read ED physician Interpretation: Normal exam, No fracture/dislocation Xray Interpretation: IMPRESSION: No acute fracture X-Ray Ordered: Hand right Interpretation: Normal exam, No fracture/dislocation Re-Eval/Medical Decision Med Decision/Clinical Course Patient presents with right hand/wrist pain after a mechanical ground-level fall catching herself with her right hand. On examination she is neurovascularly intact without any obvious deformity or swelling. There is no evidence of septic arthritis, cellulitis or skin disruption. She has good capillary refill and sensation to the fingertips. Plain films were obtained and per my interpretation demonstrated no acute fractures or dislocations. Official reads are pending at this time. Patient has multiple medication allergies though adamantly states that she believes the topical lidocaine will make her feel better. She was given topical lidocaine and reported good improvement in her symptoms. She was provided with a Velcro wrist splint for comfort and will applied ice to the extremity. She has no scaphoid tenderness on examination. She will follow-up closely with her primary care physician. I feel that she is appropriate for discharge. Prior to discharge follow-up and return precautions were reviewed in detail with the patient who verbalized understanding and agreement with the plan. The patient was discharged in stable condition. Source of Hx: Old records Re-Evaluation/Progress : Time of Eval: 07:50 Re-Evaluation/Progress Note: Pt rechecked. Discussed imaging and plan for discharge. Pt udnerstands and agrees with plan. Counseled Regarding: Diagnosis, Lab results, Need for follow-up, When/why to return to ED Discharge & Departure Impression: Primary Impression: Right wrist injury Encounter type: initial encounter Qualified Code: S69.91XA - Unspecified injury of right wrist, hand and finger(s), initial encounter Additional Impressions: Fall from ground level Sprain of right wrist Encounter type: initial encounter Qualified Code: S63.501A - Unspecified sprain of right wrist, initial encounter Disposition: Home Discharge Condition All VS Reviewed: Yes Condition: Improved Patient Instructions: Wrist Injury (ED) Additional Instructions: Thank you for seeking care at the emergency room. It is difficult for us to make definitive diagnoses in the ED but we believe that you are experiencing a right wrist sprain. Our primary goal today in the ED was to evaluate you for any life-threatening conditions. Your evaluation was reassuring and no fracture was seen at this time. You should follow-up with your primary doctor next week. If you are still experiencing pain you should have a repeat x-ray at this time. Wear your wrist splint. Apply ice to the area as needed for pain. Do not place ice directly on the area as you risk further injury, cover in a cloth or towel. You should return to the ED immediately if you develop weakness, numbness, tingling, increased pain, decreased range of motion or any other concerning signs or symptoms. Thank you for letting us partake in your care today. Referrals: Jamir Anna MD (PCP) 1 Week Scribe Attestation Portions of this note were transcribed by Beau Nassar. I, Dr. Taylor personally performed the history, physical exam and medical decision-making; I reviewed and confirmed the accuracy of the information in the transcribed note. Signed by: Shun Dill, 08/21/16 and 0751. copies to: Jamir Anna MD, Beck O MD August 21, 2016 06:58 BEAU NASSAR August 21, 2016 07:00
[2016-08-21] MEDS ORDERED: Lidocaine 5% 35.5 Gm Ointment TOPICAL ONE (07:00)
--- NOTE | 2016-08-21 08:01 | DRSVH ---
PROCEDURE: X-RAY RIGHT HAND, TWO VIEWS ([id number]) INDICATIONS: FALL TECHNIQUE: 2 views of the hand(s) acquired. COMPARISON: None. FINDINGS: Bones: No fractures or dislocations. Carpal bones are normally aligned. No suspicious bony lesions . Soft tissues: No suspicious soft tissue calcifications. IMPRESSION: No acute fracture. No osseous lesion. If clinical suspicion and/or symptoms persist, fur ther assessment with repeat plainfilms, or advanced imaging (e.g., CT, MRI, or bone scan) may be help ful for further assessment. Dictated by: Sue Epps M.D. on 08/21/2016 at 7:59 Approved by: Sue Epps M.D. on 08/21/2016 at 7:59
--- NOTE | 2016-08-21 08:05 | DRSVH ---
PROCEDURE: X-RAY RIGHT WRIST, TWO VIEWS ([id number]) INDICATIONS: FALL TECHNIQUE: 4 views of the wrist were acquired. COMPARISON: None. FINDINGS: Bones: Linear lucency traverses the posterior medial aspect of the distal radius, with radiocarpal ly int extension. Scaphoid view: No scaphoid fracture. Soft tissues: No suspicious soft tissue calcifications. IMPRESSION: Distal radial fracture. Findings discussed with Dr. Carmelo Dean on 08.21.16 at 0801 hrs. Dictated by: Sue Epps M.D. on 08/21/2016 at 8:03 Approved by: Sue Epps M.D. on 08/21/2016 at 8:04
[2016-08-21] MEDS ORDERED: OXYC1TAB24 PO (08:39)
== END 2016-08-21 07:58 | disposition home or self-care (01) ==
LOC: SED 06:28
DX: S63.591A Other specified sprain of right wrist, initial encounter (principal); W10.8XXA Fall (on) (from) other stairs and steps, initial encounter; W01.0XXA Fall on same level from slipping, tripping and stumbling without subsequent striking against object, initial encounter; Y92.009 Unspecified place in unspecified non-institutional (private) residence as the place of occurrence of the external cause; Y93.01 Activity, walking, marching and hiking; Y99.8 Other external cause status; J45.909 Unspecified asthma, uncomplicated; J44.9 Chronic obstructive pulmonary disease, unspecified; F41.9 Anxiety disorder, unspecified; F32.9 Major depressive disorder, single episode, unspecified; F17.200 Nicotine dependence, unspecified, uncomplicated; Z87.828 Personal history of other (healed) physical injury and trauma; Z86.73 Personal history of transient ischemic attack (TIA), and cerebral infarction without residual deficits; Z88.6 Allergy status to analgesic agent; Z88.5 Allergy status to narcotic agent; Z88.1 Allergy status to other antibiotic agents; Z88.8 Allergy status to other drugs, medicaments and biological substances